=== PATIENT | female | born 1980 | race Two or more races ===

== ENCOUNTER 2016-10-19 00:26 | Emergency (ER) | payer OTHER ==
[~2016-10-19] VITALS: Ht 165.1 cm; Wt 70.3 kg
[2016-10-19] MEDS ORDERED: DEXAMETHASONE SOD PHOSPHATE 10 MG/ML VIAL ONE (01:21)
[2016-10-19] MEDS ORDERED: ALBUTEROL FS 2.5 MG/3 ML VIAL.NEB ONE (01:28)
[2016-10-19] MEDS ORDERED: DEXAMETHASONE SOD PHOSPHATE 10 MG/ML VIAL IV ONE (01:30)
[2016-10-19] MEDS ORDERED: IV NS 0.9% 1,000 ML BAG IV ONE (01:30)
[2016-10-19] MEDS ORDERED: ALBUTEROL FS 2.5 MG/3 ML VIAL.NEB CONTNEB ONE (01:30)
[2016-10-19] MEDS ORDERED: ACETAMINOPHEN ES 500 MG TABLET ONE (02:17)
[2016-10-19] MEDS ORDERED: ACETAMINOPHEN 325 MG TABLET PO ONE (02:30)
[2016-10-19 03:19] VITALS: BP 124/63
== END 2016-10-19 03:20 | disposition home or self-care (01) ==
LOC: ER 00:33
DX: J18.9 Pneumonia, unspecified organism (principal); J45.909 Unspecified asthma, uncomplicated; K76.9 Liver disease, unspecified
CPT/HCPCS: 94640 ×2; 96361; 96374; 99284; A4606; J1100; Z7610